=== PATIENT | female | born 1945 | race Caucasian/White ===

== ENCOUNTER → 2019-10-04 | Outpatient (CLI) | payer MEDICARE, BC ==
[~2019-10-04] MED LIST: ALBU2.5V5 NEB; ALBU2.5V8 IH; ASPI-630 PO; CARV25TA2 PO; CYAN250012 PO; DESL5TAB PO; ELDE1CAP PO; FLUT1DIS IH; FLUT1DIS3 IH; GARL100T PO; HYDR-3164 PO; LEXAPRO20 MG PO; LOSA-73 PO; OMEP40CA45 PO; PIOG30TA41 PO; SIMV40TA18 PO; TIOT18CA IH; WARF-31 PO
[2019-10-04 09:31] LABS: BASO # 0.1 x10^3/uL (0.0-0.2); BASO % 1 % (0-3); EOS # 0.3 x10^3/uL (0.0-0.7); EOS % 4 % (0-3); HEMATOCRIT 34.7 % (36.0-47.0); HEMOGLOBIN 10.9 g/dL (12.0-15.5); LYMPH # 0.7 x10^3/uL (1.0-4.8); LYMPH % 10 % (24-48); MEAN CORPUSCULAR HEMOGLOBIN 27 pg (25-35); MEAN CORPUSCULAR HGB CONC 32 g/dL (31-37); MEAN CORPUSCULAR VOLUME 85 fL (79-100); MONO # 0.4 x10^3/uL (0.0-1.1); MONO % 6 % (0-9); NEUT # 5.9 x10^3/uL (1.8-7.7); NEUT % 79 % (31-73); PLATELET COUNT 238 x10^3/uL (140-400); RED BLOOD COUNT 4.07 x10^6/uL (3.50-5.40); RED CELL DISTRIBUTION WIDTH 15.4 % (11.5-14.5); WHITE BLOOD COUNT 7.5 x10^3/uL (4.0-11.0)
[2019-10-04 09:36] LABS: PROTHROMBIN TIME PATIENT 11.9 SEC (11.7-14.0)
[2019-10-04 09:48] LABS: ALBUMIN 3.8 g/dL (3.4-5.0); CALCIUM 9.6 mg/dL (8.5-10.1); CREATININE 0.7 mg/dL (0.6-1.0); POTASSIUM 4.6 mmol/L (3.5-5.1)
--- NOTE | 2019-10-04 15:07 | RAD ---
CHEST PA LATERAL History: Bilateral lung cancer. Preop evaluation for hip replacement. Comparison: None. Findings: Frontal and lateral views of chest were obtained. Suture material and surgical clips about the left perihilar region noted. Right upper lung field surgical clips also present. Left infrahilar surgical clips. Heart size is normal. No pneumothorax. Right lung field is unremarkable. Subtle opacification at the left lateral basilar aspect which may represent pleural thickening and overlapping anatomic structures is noted. Left thoracotomy noted. No pleural effusion seen. Borderline pulmonary hyperinflation. IMPRESSION: No acute cardiopulmonary process. Postoperative findings. Electronically signed by: Eleazar Ayon MD (10/04/2019 3:03 PM) [facility]
[2019-10-06 00:07] LABS: HEMOGLOBIN A1C 6.6 % (4.8-5.6)
== END | disposition home or self-care (01) ==
LOC: SURGPAT 13:20
PROVIDERS: ATTEND Orthopaedic Surgery
DX: Z01.818 Encounter for other preprocedural examination (principal); M16.11 Unilateral primary osteoarthritis, right hip; M25.551 Pain in right hip; Z88.0 Allergy status to penicillin; Z88.8 Allergy status to other drugs, medicaments and biological substances; Z88.2 Allergy status to sulfonamides
CPT/HCPCS: 36415; 71046; 80048; 82040; 82306; 83036; 85025; 85610; 85651; 85730; 87641

== ENCOUNTER → 2020-06-19 | Outpatient (CLI) | payer MEDICARE, BC ==
[2019-10-22 08:20] VITALS: BP 134/66
[~2020-06-19] MED LIST changes: +OXYC5CAP PO; +WARF3TAB50 PO
[2020-06-19 11:15] LABS: BASO # 0.1 x10^3/uL (0.0-0.2); BASO % 1 % (0-3); EOS # 0.4 x10^3/uL (0.0-0.7); EOS % 5 % (0-3); HEMATOCRIT 31.8 % (36.0-47.0); HEMOGLOBIN 9.9 g/dL (12.0-15.5); LYMPH # 0.7 x10^3/uL (1.0-4.8); LYMPH % 9 % (24-48); MEAN CORPUSCULAR HEMOGLOBIN 25 pg (25-35); MEAN CORPUSCULAR HGB CONC 31 g/dL (31-37); MEAN CORPUSCULAR VOLUME 80 fL (79-100); MONO # 0.5 x10^3/uL (0.0-1.1); MONO % 6 % (0-9); NEUT # 6.2 x10^3/uL (1.8-7.7); NEUT % 80 % (31-73); PLATELET COUNT 355 x10^3/uL (140-400); RED BLOOD COUNT 3.99 x10^6/uL (3.50-5.40); RED CELL DISTRIBUTION WIDTH 16.8 % (11.5-14.5); WHITE BLOOD COUNT 7.8 x10^3/uL (4.0-11.0)
[2020-06-19 11:24] LABS: PROTHROMBIN TIME PATIENT 12.6 SEC (11.7-14.0)
[2020-06-19 11:25] LABS: ALBUMIN 3.5 g/dL (3.4-5.0); ANION GAP 3 (6-14); BLOOD UREA NITROGEN 28 mg/dL (7-20); C-REACTIVE PROTEIN < 0.5 mg/L (0-3.3); CALCIUM 9.6 mg/dL (8.5-10.1); CARBON DIOXIDE 38 mmol/L (21-32); CHLORIDE 100 mmol/L (98-107); CREATININE 0.6 mg/dL (0.6-1.0); GLUCOSE 129 mg/dL (70-99); POTASSIUM 5.3 mmol/L (3.5-5.1); SODIUM 141 mmol/L (136-145)
[2020-06-20 01:08] LABS: HEMOGLOBIN A1C 6.7 % (4.8-5.6)
== END | disposition home or self-care (01) ==
LOC: SURGPAT 09:53
PROVIDERS: ATTEND Orthopaedic Surgery
DX: Z01.818 Encounter for other preprocedural examination (principal); M16.12 Unilateral primary osteoarthritis, left hip
CPT/HCPCS: 36415; 80048; 82040; 82306; 83036; 85025; 85610; 85730; 86140; 87641

== ENCOUNTER → 2020-10-12 | Outpatient (CLI) | payer MEDICARE, BC ==
[2020-07-17 17:24] VITALS: BP 140/69
[~2020-10-12] MED LIST changes: +CARV3.12 PO; +Warfarin Per Pharmacy MC
--- NOTE | 2020-10-12 16:30 | CARD ---
MR#: [id number] Date of Study: 10/12/2020 Ordering Physician: ARTURO MEEK, Referring Physician: ARTURO MEEK Tech: Dorcas Long [facility] APPROVED REPORT EXAM: Two-dimensional and M-mode echocardiogram with Doppler and color Doppler. Other Information Quality : Technically LimitedHR: 74bpm Rhythm : NSRTechnically limited study due to COPD....O2 DEPENDENT INDICATION Dyspnea RISK FACTORS Hypertension Hyperlipidemia 2D DIMENSIONS RVDd3.4 (2.9-3.5cm)IVSd1.1 (0.7-1.1cm) LVDd4.1 (3.9-5.9cm)PWd1.2 (0.7-1.1cm) Aortic Valve AoV Peak Wesley.213.9cm/Gabriel Peak GR.18.3mmHg LVOT Peak Wesley.80.2cm/s Mitral Valve MV E Ixkdxfqp17.5cm/sMV DECEL [id number] MV A Gkwphyix444.2cm/sMV HGU31wd E/A Ratio0.5MVA (PHT)3.59cm2 TDI E/Lateral E'13.0E/Medial E'14.3 Tricuspid Valve TR P. Eluoogrc564pz/sTR Peak Gr.29mmHg Pulmonary Vein S1 Mdttprrj43.5cm/sD2 Sasohmtq40.9cm/s PVa [id number] LEFT VENTRICLE The left ventricle is normal size. There is borderline to mild concentric left ventricular hypertroph y. The left ventricular systolic function is mildly decreased. EF 40-45% There is mild global hypokin esis. Tissue Doppler imaging reveals moderate left ventricular diastolic dysfunction. RIGHT VENTRICLE The right ventricle is normal size. There is normal right ventricular wall thickness. The right ventr icular systolic function is normal. ATRIA The left atrium is mildly dilated. The right atrium is mildly dilated. The interatrial septum is inta ct with no evidence for an atrial septal defect or patent foramen ovale as noted on 2-D or Doppler im aging. AORTIC VALVE The aortic valve is not well visualized, grossly appears sclerotic and with restricted leaflet motion . Doppler and Color Flow revealed no significant aortic regurgitation. There is no significant aortic valvular stenosis. MITRAL VALVE The mitral valve is normal in structure and function. There is no evidence of mitral valve prolapse. There is no mitral valve stenosis. Doppler and Color-flow revealed mild mitral regurgitation. TRICUSPID VALVE The tricuspid valve is normal in structure and function. Doppler and Color Flow revealed mild tricusp id regurgitation. Estimated PAP 35 mmHg. There is no tricuspid valve stenosis. PULMONIC VALVE Doppler and Color Flow revealed trace pulmonic valvular regurgitation. There is no pulmonic valvular stenosis. GREAT VESSELS The aortic root is normal in size. The ascending aorta is normal in size. The IVC is normal in size a nd collapses >50% with inspiration. PERICARDIAL EFFUSION There is no evidence of significant pericardial effusion. Critical Notification Critical Value: No <Conclusion> The left ventricular systolic function is mildly decreased. EF 40-45% There is mild global hypokinesis. Doppler and Color Flow revealed mild tricuspid regurgitation. Estimated PAP 35 mmHg. Signed by : Steve Adams, Electronically Approved : 10/12/2020 16:29:43
== END ==
LOC: ECHO 12:36
PROVIDERS: ATTEND Internal Medicine Cardiovascular Disease
DX: I08.1 Rheumatic disorders of both mitral and tricuspid valves (principal); I47.1 Supraventricular tachycardia
CPT/HCPCS: 93306

== ENCOUNTER → 2021-11-26 | Outpatient (CLI) | payer MEDICARE, BC ==
[2020-07-17 17:24] VITALS: BP 140/69
[~2021-11-26] MED LIST changes: -OMEP40CA45 PO; +OMEP40CA7 PO
--- NOTE | 2021-11-26 16:43 | CARD ---
MR#: [id number] Date of Study: 11/26/2021 Ordering Physician: ARTURO MEEK, Referring Physician: ARTURO MEEK Tech: Dorcas Long [facility] APPROVED REPORT EXAM: Two-dimensional and M-mode echocardiogram with Doppler and color Doppler. Other Information Quality : Technically LimitedHR: 66bpm Rhythm : NSR INDICATION Thrombus RISK FACTORS Hypertension Obesity 2D DIMENSIONS RVDd3.2 (2.9-3.5cm)Left Atrium(2D)3.8 (1.6-4.0cm) IVSd1.2 (0.7-1.1cm)Aortic Root(2D)2.5 (2.0-3.7cm) LVDd5.2 (3.9-5.9cm)LVOT Diameter2.1 (1.8-2.4cm) PWd1.4 (0.7-1.1cm)LVDs3.9 (2.5-4.0cm) FS (%) 24.9 %SV62.1 ml Aortic Valve AoV Peak Wesley.179.9cm/sAoV VTI44.1cm AO Peak GR.12.9mmHgLVOT Peak Wesley.88.7cm/s AO Mean GR.7mmHgAVA (VMAX)1.70cm2 Mitral Valve MV E Vfcsovre291.6cm/sMV DECEL PUGS802nd MV A Cipqlgnq518.3cm/sE/A Ratio0.7 Pulmonary Valve PV Peak Fllautll360.1cm/s Tricuspid Valve TR P. Ortrepwt443vs/sTR Peak Gr.45mmHg LEFT VENTRICLE Technically difficult study. The Left Ventricle is borderline dilated. There is normal left ventricu lar wall thickness. The systolic function is mild to moderately decreased. LV ejection fraction is 3 6 to 40%. There is global hypokinesis of the left ventricle. Transmitral Doppler flow pattern is Gra de I-abnormal relaxation pattern. RIGHT VENTRICLE The right ventricle is normal size. The right ventricle is mildly hypertrophied. The right ventricula r systolic function is normal. ATRIA The left atrium size is normal. The right atrium size is normal. The interatrial septum is intact wit h no evidence for an atrial septal defect or patent foramen ovale as noted on 2-D or Doppler imaging. AORTIC VALVE The aortic valve is normal in structure and function. Doppler and Color Flow revealed trace aortic re gurgitation. There is no significant aortic valvular stenosis. MITRAL VALVE The mitral valve is normal in structure and function. There is no evidence of mitral valve prolapse. There is no mitral valve stenosis. Doppler and Color-flow revealed mild mitral regurgitation. TRICUSPID VALVE The tricuspid valve is normal in structure and function. Doppler and Color Flow revealed mild tricusp id regurgitation. Estimated PAP 45-50 mmHg. There is no tricuspid valve stenosis. PULMONIC VALVE The pulmonary valve is normal in structure and function. Doppler and Color Flow revealed trace to mil d pulmonic valvular regurgitation. GREAT VESSELS The aortic root is normal in size. The ascending aorta is normal in size. The IVC is normal in size a nd collapses <50% with inspiration. PERICARDIAL EFFUSION There is no evidence of significant pericardial effusion. Critical Notification Critical Value: No <Conclusion> Technically difficult study. The Left Ventricle is borderline dilated. The systolic function is mild to moderately decreased. LV ejection fraction is 36 to 40%. There is global hypokinesis of the left ventricle. Doppler and Color Flow revealed trace aortic regurgitation. There is no significant aortic valvular stenosis. Doppler and Color-flow revealed mild mitral regurgitation. Doppler and Color Flow revealed mild tricuspid regurgitation. Estimated PAP 45-50 mmHg. Signed by : Derrick Clark MD Electronically Approved : 11/26/2021 16:42:55
== END ==
LOC: ECHO 09:36
PROVIDERS: ATTEND Internal Medicine Cardiovascular Disease
DX: I08.8 Other rheumatic multiple valve diseases (principal); I47.1 Supraventricular tachycardia
CPT/HCPCS: 93306; C8929